=== PATIENT | female | born 1960 | race Caucasian/White ===

== ENCOUNTER 2019-04-27 23:42 | Inpatient (IN) | payer SELFPAY ==
[2019-04-27 23:44] VITALS: BP 125/88; PULSE 81; RESP 17; TEMP 36.9; O2SAT 98; BMI 58.5
[2019-04-28] VITALS (9 sets, daily range): BP systolic 104–132; BP diastolic 47–83; PULSE 66–76; RESP 16–19; TEMP 36.4–37.1; O2SAT 94–98; BMI 57.9; BMI 58.0
--- NOTE | 2019-04-28 00:19 | RAD_ITS ---
STUDY: X-RAY CHEST REASON FOR EXAM: Female, 58 years old. Chest pain TECHNIQUE: 1 view COMPARISON: None. FINDINGS: The lungs are clear and expanded. There is no demonstrated pleural abnormality. Normal size heart. Normal mediastinum and sterling. Normal visualized pulmonary arteries. Normal visualized aortic arch and descending thoracic aorta. Normal visualized thoracic spine. Normal visualized ribs, clavicles, and shoulders. There is no demonstrated abnormality of the visualized soft tissue structures of the upper abdomen. RAD/Chest 1 View (Portable) IMPRESSION: Normal x-ray examination of the chest. No acute findings in the lungs Electronically Signed: Vinicio De Leon MD at 0:49 EDT Tel , Service support ,
--- NOTE | 2019-04-28 00:20 | ED.DCSUM_ITS ---
History of Present Illness Chief Complaint: Fall Informant: Patient, Significant Other Onset: Weeks - several Context: Gradual Onset Timing: Continuous Quality: weak Location: BLE Current Severity: Severe Maximum Severity: Severe Worsened by: nothing Relieved by: nothing Associated Symptoms: low back pain gradually worsening Narrative: Chronic low back discomfort that has been worse, she has been getting weaker and leg, was admitted to [facility] last week and they gave her steroids which helped a lot with her pain, she also has fibromyalgia and has pain all over, I did help with that pain as well. She is currently done with steroids but since she has been on them, for the past week, her weakness has been worse, she has been urinating more frequently with some urinary incontinence but no saddle anesthesia, numbness in the legs, or incontinent of bowel. She has had some nausea off and on but states that is common when her fibromyalgia pain flares up. She saw her PCP this morning and had some with difficulty walking in the office she was advised to go to the ER to seek ECF admission, but she was hesitant to do this until she slid out of her recliner today and was unable to get up due to weakness, so she has changed her mind and wants to be admitted. She has a who works throughout the day and is unable to care for her throughout the day because of that. She states that when she had prior epidural injections in her back, they have temporarily helped; she has never had an MRI. - Past Medical History (1) Fibromyalgia Status: Chronic (2) Hypothyroidism Status: Chronic (3) Chronic low back pain without sciatica Status: Chronic (4) Bipolar 1 disorder Status: Chronic Past Medical History - Allergies and Home Meds Allergies/Adverse Reactions: Allergies Iodinated Contrast- Oral and IV Dye [DYEE] Allergy (Verified 04/27/19 23:49) Nausea/Vom/Diarrhea prochlorperazine [From Compazine] Allergy (Verified 04/27/19 23:49) Nausea/Vom/Diarrhea sulfamethoxazole [From Bactrim] Allergy (Verified 04/27/19 23:49) Rash trimethoprim [From Bactrim] Allergy (Verified 04/27/19 23:49) Rash Primary Care Physician: Care Physician,No Primary [Primary Care Provider] - Lives: Spouse/ Significant Other Smoking Status: Never smoker Drugs: None Review of Systems General: Denies: Chills, Fever, Sweats Eyes: Denies: Visual changes - bilaterally, Diplopia ENT: Denies: Rhinorrhea, Sore throat Cardiovascular: Denies: Chest pain, Palpitations Respiratory: Denies: Dyspnea, Cough, Dyspnea on exertion Gastrointestinal: Reports: Nausea. Denies: Abdominal pain, Vomiting, Diarrhea, Melena, Hematochezia Genitourinary: Reports: Frequency. Denies: Dysuria, Hematuria Musculoskeletal: Reports: Back pain, Extremity Pain - BLE, RUE, chronic. Denies: Neck pain, Swelling Skin: Denies: Rash, Wounds Neurological: Denies: Headache, Weakness, Parasthesia, Numbness Psych: Reports: Depression. Denies: Suicidal thoughts, Suicidal ideations Endocrine: Denies: Heat intolerance, Cold intolerance Physical Exam Vital Signs/Narrative: Vital Signs Temp Pulse Resp BP Pulse Ox 04/27/19 23:44 98.4 F 81 17 125/88 H 98 Inital Vital Signs reviewed: Yes General: Well nourished, Well developed, Obese, No Acute Distress Head: Normocephalic, Atraumatic Eyes: Perrl, EOMI ENT: Moist mucous membranes, No rhinorrhea Neck: Supple, Nontender Cardiovascular: Regular rate, Regular rhythm, No murmurs Respiratory: No distress, CTA bilaterally, Chest nontender Abdomen: Soft, Nontender, Nondistended, Normal bowel sounds Back: Nontender, Normal Inspection Extremities: No edema, Tenderness - diffuse x all 4 ext; no cyanosis. no skin lesions. FROM throughout all 4 ext's.. Negative for: Calf Tenderness Skin: Normal color, No rash, No Trauma Neurological: Alert, Oriented x3, Cranial nerves II-XII grossly intact, Normal Sensation, Normal DTR. Negative for: Normal Strength - weak in BLE, but able to move everything Psychological: Normal affect, Normal Mood Diagnostic/Tx/Re-eval Impressions Chest X-Ray 04/28/19 00:19 IMPRESSION: Normal x-ray examination of the chest. No acute findings in the lungs Electronically Signed: Vinicio De Leon MD at 0:49 EDT Tel , Service support , 04/28/19 00:19 Chest 1 View (Portable) [RAD] Stat Laboratory Results 04/28/19 04/28/19 04/28/19 01:40 01:40 02:05 WBC 8.7 RBC 4.03 L Hgb 12.8 Hct 38.1 MCV 94.5 MCH 31.8 MCHC 33.6 RDW Std Deviation 44.3 H RDW Coeff of Lan 12.8 Plt Count 267 MPV 10.1 Immature Gran % (Auto) 0.300 Neut % (Auto) 48.1 Lymph % (Auto) 39.4 [place] % (Auto) 9.0 Eos % (Auto) 2.5 Baso % (Auto) 0.7 Absolute Neuts (auto) 4.2 Absolute Lymphs (auto) 3.41 Absolute Nucleated RBC 0.00 Nucleated RBC % 0 Sodium 140 Potassium 4.1 Chloride 106 Carbon Dioxide 31.0 Anion Gap 3 L BUN 22 H Creatinine 0.95 Estim Creat Clear Calc 60.43 Est GFR (MDRD) Af Amer 77 Est GFR (MDRD) Non-Af 64 BUN/Creatinine Ratio 23.1 H Glucose 100 Calcium 8.8 Urine Color Yellow Urine Clarity Sl. Cloudy Urine pH 6.0 Ur Specific [place] 1.020 Urine Protein 15 H Urine Glucose (UA) Normal Urine Ketones Negative Urine Occult Blood 10 H Urine Nitrite Negative Urine Bilirubin Negative Urine Urobilinogen Normal Ur Leukocyte Esterase 500 H Urine RBC 0-5 SEEN Urine WBC 5-10 SEEN Ur Squamous Epith Cells 5-10 SEEN Urine Bacteria 2+ Urine Mucus 1+ - Medical Decision Making Labs show no acute abnormality, chest x-ray shows no pneumonia, urinalysis shows likely infection. Sent for culture, IV Rocephin given, she is not septic. She feels she cannot care for herself at home and her is unable to as well, her obesity is a factor there. Plan is for admission, evaluation by therapist, it is unknown whether she needs assisted living, versus longterm, versus home health. She did not injure herself from her falls. ED Disposition - Plan for ED Patient: Disposition: Acute Care Hospital [facility] Diagnosis: Declining functional status, Weakness of both lower extremities, UTI (urinary tract infection) Referrals: Care Physician,No Primary [Primary Care Provider] -
[2019-04-28] MEDS: Ondansetron 4 MG/2 ML Vial IV (01:33)
[2019-04-28] MEDS: Morphine 4 MG/ML Syringe IV (01:33)
[2019-04-28 01:53] LABS: Absolute Lymphocyte Count 3.41 X10^3/uL (0.83-4.51); Absolute Neutrophil Count 4.2 X10^3/uL (2.0-7.7); Basophil# 0.06 X10^3/uL; Basophil% 0.7 % (0-1); Eosinophil# 0.22 X10^3/uL; Eosinophils% 2.5 % (0-5); Hematocrit 38.1 % (37-47); Hemoglobin 12.8 g/dL (12.0-15.0); Lymphocyte # 3.41 X10^3/ul (4.0); Lymphocyte % 39.4 % (19-41); Mean Corp Hgb Conc 33.6 g/dL (32-36); Mean Corpuscular Hgb 31.8 pg (27.0-32.0); Mean Corpuscular Volume 94.5 fL (81-99); Mean Platelet Vol. 10.1 fl (6.2-12.0); Monocyte# 0.78 X10^3/uL; NRBC Flagged by Analyzer 0 % (0-5); Neutrophil # 4.16 X10^3/uL (2.7-7.7); Neutrophil % 48.1 % (47-70); Platelet Count 267 K/mm3 (150-450); RBC Distribution Width CV 12.8 % (11.6-14.6); RBC Distribution Width SD 44.3 fl (35.1-43.9); Red Blood Count 4.03 M/mm3 (4.2-5.4); White Blood Count 8.7 K/mm3 (4.4-11.0)
[2019-04-28 01:59] LABS: Anion Gap 3 (5-15); BUN 22 mg/dL (7-18); BUN/Creat Ratio 23.1 RATIO (10-20); Calcium,Total 8.8 mg/dL (8.5-10.1); Chloride 106 mmol/L (98-107); Creatinine, Serum 0.95 mg/dL (0.55-1.02); EST Glomerular Filtration Rate 64 mL/min (>60); Est Glom Filt Rate - Afr Amer 77 mL/min (>60); Estimated Creatinine Clearance 60.43 ml/min; Glucose 100 mg/dL (74-106); Potassium 4.1 mmol/L (3.5-5.1); Sodium Level 140 mmol/L (136-145)
[2019-04-28 02:13] LABS: Color, Urine Yellow (Yellow); Glucose, Dipstick Normal (Normal); Ketone-Dipstick Negative (Negative); Leukocyte Esterase-Dipstick 500 /ul (Negative); Nitrite-Dipstick Negative (Negative); Occult Blood-Urine 10 /ul (Negative); Protein-Dipstick 15 mg/dl (Negative); Urine Bilirubin Dipstick Negative (Negative); Urine Clarity Sl. Cloudy (Clear); Urine Urobilinogen Normal (Normal)
[2019-04-28 02:17] LABS: Bacteria 2+ /hpf (None Seen); Mucous, Urine 1+ /hpf (<or=2+); Squamous Epithelial Cells - UA 5-10 SEEN /hpf (5-10)
[2019-04-28 02:18] LABS: Red Blood Cells-Urine 0-5 SEEN /hpf (0-5); White Blood Cells 5-10 SEEN /hpf (0-5)
--- NOTE | 2019-04-28 02:33 | PCM.HP.STD ---
Problem List (1) Weakness of both lower extremities Status: Acute (2) UTI (urinary tract infection) Status: Acute History of Present Illness Date of Admission: 04/28/19 Chief Complaint: bilateral leg weakness The patient is a 58 year old F with a significant history of fibromyalgia; bipolar disorder; super morbid obesity who presented to the emergency department with 1 week history of bilateral leg weakness. Associated with her symptoms is lower back pain that radiates to her right leg. At rest her pain is 6 out of 10. And with movement her pain is 9 out of 10. She describe her pain as dull aching and cramps. She reports that the pain at the right leg is on her pedroza. Patient was recently admitted at [facility] where she received steroids and pain medication that improved her pain. After the course of steroids ran out her pain came back. Patient follows up with [facility]. Reportedly she had received epidural shots in her back before. Patient reports weakness to the point that she could not get in/out of a vehicle. Patient is unable to take care of herself because she is unable to walk. She lives at home with her who works and is not at home all the time. Patient reported that she has been prescribed Courtenay from the [place] [facility] but because of excruciating pain she took an extra dose of a prescribed Courtenay. She reports urinary frequency for about 1 month duration. Also she reported feeling of incomplete bladder emptying. She reports recent constipation. Previously her bowels used to move 2-3 times a day. Her last bowel movement was on the day of presentation where her bowels moved only one time. Past Medical History Past Medical History (Chronic Problems): Chronic Problems Fibromyalgia (Chronic) Hypothyroidism (Chronic) Chronic low back pain without sciatica (Chronic) Bipolar 1 disorder (Chronic) Allergies Iodinated Contrast- Oral and IV Dye [DYEE] Allergy (Verified 04/27/19 23:49) Nausea/Vom/Diarrhea prochlorperazine [From Compazine] Allergy (Verified 04/27/19 23:49) Nausea/Vom/Diarrhea sulfamethoxazole [From Bactrim] Allergy (Verified 04/27/19 23:49) Rash trimethoprim [From Bactrim] Allergy (Verified 04/27/19 23:49) Rash Home Medications: Ambulatory Orders Medication Instructions Recorded Celecoxib 200 mg PO DAILY 04/27/19 Fluoxetine HCl [Prozac] 20 mg PO BID 04/27/19 Hydrocodone/Acetaminophen [Courtenay 5 - 325 mg PO TID 04/27/19 5-325 Tablet] Pregabalin [Lyrica] 75 mg PO BID 04/27/19 Progesterone, Micronized 100 mg PO DAILY 04/27/19 [Progesterone] Quetiapine Fumarate [Seroquel] 300 mg PO DAILY 04/27/19 Thyroid,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 Thyroid] 60 mg PO DAILY 04/27/19 cycloBENZAPRine HCl 10 mg PO TID 04/27/19 [Cyclobenzaprine HCl] Surgical History: appendectomy, cholecystectomy, hysterectomy, - - Bladder surgery for growth removal Lives: Spouse/ Significant Other Smoking Status: Never smoker Alcohol: None Drugs: None - *Family History Maternal History Items: Diabetes, Stroke Paternal History Items: COPD, Diabetes, Pulmonary Disease - Asthma Review of Systems Constitutional: Denies: Chills, Fever, Weight Change HEENT: Denies: Head Aches, Sinus Congestion, Sinus Drainage Cardiovascular: Denies: Chest Pain, Palpitations Respiratory: Denies: Cough, Shortness of breath at rest, Sputum production Gastrointestinal: Denies: Abdominal Pain, Nausea, Vomiting Genitourinary: Reports: Dysuria, Frequency Musculoskeletal: Reports: Back Pain, Leg Pain, Muscle pain. Denies: Joint Tenderness Skin: Reports: Skin Changes - Erythema in groin. Denies: Wounds Neurological: Denies: Numbness, Tingling, Focal weakness Psychiatric: Reports: Depression. Denies: Anxiety, Homicidal Ideations, Suicidal Ideations Hematologic/ Lymphatic: Denies: Easy Bruising, Easy Bleeding VTE Information - Inpt Only VTE Present on Admission: No VTE Mechan Device Prophylaxis: None VTE Pharm Prophylaxis ordered?: Yes Patient Problems: Active and Suspected Problems Declining functional status (Acute) Weakness of both lower extremities (Acute) UTI (urinary tract infection) (Acute) - Physical Exam General: Alert, Oriented x3, Cooperative, - - Morbidly obese. HEENT: Atraumatic, PERRLA, EOMI, Normocephalic Neck: Supple, No JVD, Negative Carotid Bruits Lungs: Clear to auscultation, Normal air movement Cardiovascular: Regular rate, No murmurs Abdomen: Bowel Sounds Present, Soft, Non Tender Extremities: No edema, Capillary Refill Less than 3 Seconds, Tenderness - Bilateral leg. With straight leg test patient did not complain of back pain however she complained of bilateral leg pain. Skin: - - Erythema in inguinal folds Musculoskeletal: - - Diffuse spinal and paraspinal tenderness of her back Fernie contribute to fibromyalgia Neurological: Cranial nerves II-XII grossly intact Psych/Mental Status: Normal Affect, Appropriate Vital Signs Temp Pulse Resp BP Pulse Ox 98.4 F 76 16 104/64 97 04/27/19 23:44 04/28/19 02:06 04/28/19 02:06 04/28/19 02:06 04/28/19 02:06 Oxygen Delivery Method Room Air Weight: 164.4 kg Body Mass Index (BMI) 58.5 Laboratory Tests Past 24 Hrs 04/28/19 04/28/19 04/28/19 01:40 01:40 02:05 WBC 8.7 RBC 4.03 L Hgb 12.8 Hct 38.1 MCV 94.5 MCH 31.8 MCHC 33.6 RDW Std Deviation 44.3 H RDW Coeff of Lan 12.8 Plt Count 267 MPV 10.1 Immature Gran % (Auto) 0.300 Neut % (Auto) 48.1 Lymph % (Auto) 39.4 [place] % (Auto) 9.0 Eos % (Auto) 2.5 Baso % (Auto) 0.7 Absolute Neuts (auto) 4.2 Absolute Lymphs (auto) 3.41 Absolute Nucleated RBC 0.00 Nucleated RBC % 0 Sodium 140 Potassium 4.1 Chloride 106 Carbon Dioxide 31.0 Anion Gap 3 L BUN 22 H Creatinine 0.95 Estim Creat Clear Calc 60.43 Est GFR (MDRD) Af Amer 77 Est GFR (MDRD) Non-Af 64 BUN/Creatinine Ratio 23.1 H Glucose 100 Calcium 8.8 Urine Color Yellow Urine Clarity Sl. Cloudy Urine pH 6.0 Ur Specific [place] 1.020 Urine Protein 15 H Urine Glucose (UA) Normal Urine Ketones Negative Urine Occult Blood 10 H Urine Nitrite Negative Urine Bilirubin Negative Urine Urobilinogen Normal Ur Leukocyte Esterase 500 H Urine RBC 0-5 SEEN Urine WBC 5-10 SEEN Ur Squamous Epith Cells 5-10 SEEN Urine Bacteria 2+ Urine Mucus 1+ Assessment/Plan All Active Problems Declining functional status (Acute) Weakness of both lower extremities (Acute) UTI (urinary tract infection) (Acute) The patient is a 58 year old F with a significant history of fibromyalgia; bipolar disorder; super morbid obesity who presented to the emergency department with 1 week history of bilateral leg weakness and with urinary symptoms and was found to have abnormal urinalysis. Bilateral leg weakness. PT and OT to work the patient and make recommendation. Of note patient reports that she has never had an MRI even though she has had epidural shot; has been hospitalized at all those hospital and is following up with [facility]. Will request medical records from the centers. PT noted with patient and make recommendation. Case management consult for discharge planning. Low back pain Continue home Celebrex; Courtenay; pregabalin. Add PRN Tylenol. Of note careful use of Tylenol while on Courtenay. Acute cystitis Received ceftriaxone 1 g at the emergency department. Because of a high body index will dose ceftriaxone twice daily. Intertrigo Nystatin powder ordered Constipation Does not feel like cauda equina syndrome. She reported to be having constipation for some time and try to get her bowels to come to normal. Will start her on MiraLAX. Hold for loose stools. Postmenopausal symptoms Progesterone continued Bipolar/depression Seroquel and Prozac continued Hypothyroidism Thyroid medicine continued. Because of her weakness will check TSH. Fibromyalgia Celebrex; Flexeril; Lyrica continued DVT prophylaxis Because of a high body index will dose Lovenox 40 mg twice daily Code Visit Inpatient E&M: 40234 Init Hosp L3
[2019-04-28] MEDS: Ceftriaxone 1 GM/50 ML BAG IV (03:33)
[2019-04-28 04:45] LABS: Thyroid Stim Hormone (TSH) 3.13 uIU/mL (0.358-3.74)
[2019-04-28] MEDS: HYDROcodone Bitartrate/Apap 5/325 Tablet PO ×3 (05:00→22:10)
[2019-04-28] MEDS: cycloBENZAPRine HCl 10 MG Tablet PO (05:01)
[2019-04-28 05:06] LABS: Bedside Glucose 96 mg/dL (70-110)
[2019-04-28] MEDS: Thyroid 60 MG Tablet PO (08:53)
[2019-04-28] MEDS: FLUoxetine 20 MG Capsule PO ×2 (08:54→22:06)
[2019-04-28] MEDS: Celecoxib 200 MG Capsule PO (08:54)
[2019-04-28] MEDS: Polyethylene Glycol 3350 17 GM PACKET PO (08:54)
[2019-04-28] MEDS: QUEtiapine 100 MG Tablet 300 MG PO (08:54)
[2019-04-28] MEDS: Enoxaparin 40 MG/0.4 ML Syringe SC (08:55)
[2019-04-28] MEDS: Pregabalin 75 MG Capsule PO ×2 (09:00→22:10)
--- NOTE | 2019-04-28 09:57 | PCA ---
have received patient records from [facility]
--- NOTE | 2019-04-28 11:22 | NURSING ---
This nurse aware of Vital Signs that were obtained this morning by Jazz SYED.
--- NOTE | 2019-04-28 12:31 | NURSING ---
this nurse went into see pt. Pt informed this nurse that she has not had a bowel movement since and the last time she was here she went home and could not have a bowel movement she had to disimpact herself. This nurse informed her that she was given Miralax this morning but the doctor would be notified. Dr. Rock is here on the floor and is aware of the above. Order obtained.
--- NOTE | 2019-04-28 12:45 | CASEMGMT ---
Social Work Consult: SNF Placement Informant: configuration manager Met with patient in room. Patient reporting to have [employer] as insurance. This social services specialist stating to not be sure how this will work with usp placement. Patient confirming to want and need usp placement. Patient requesting [facility] as patient first and second options. This social services specialist communicating that social work will need to follow up with patient on Tuesday to explore further options. Patient aware that there is a chance patient will need to private pay for SNF due to patient no having any formal insurance. Patient aware and stating to maybe be able to get some assistance from the hindu. Support provided. Social Work to continue to follow. Kiki SINGH, TUCKER
[2019-04-28 14:17] LABS: Hemoglobin A1c 5.5 % (4.2-6.3)
[2019-04-28] MEDS: cycloBENZAPRine HCl 5 MG TABLET PO (15:19)
[2019-04-28] MEDS: Lactulose 20 GM/30 ML UDC PO (15:20)
[2019-04-28 17:01] LABS: Bedside Glucose 85 mg/dL (70-110)
--- NOTE | 2019-04-28 17:39 | PCM.HOSP.N ---
Hospitalist Note She was seen and examined today, she was admitted earlier this morning for generalized weakness that has been progressive at home, her was unable to care for her any longer and requested retirement facility placement. Patient states that when she tries to stand her legs are weak and give out. Patient also complains of intermittent numbness in her legs. Patient currently sees pain management in [place]. I have reviewed the patient's medications from her [facility] report, it appears that she was only prescribed a small amount of Flexeril for use, I have elected to stop this medication at this time. Patient states she is never had an MRI of her lower back, I will order a noncontrasted MRI of the lumbar spine.
--- NOTE | 2019-04-28 19:46 | DIALYSIS ---
Addendum entered by Chemo Lewis 05/01/19 15:11: This note entered on incorrect patient. Magalys Yu original documenter verified that documentation was on incorrect patient. please disregard information included within this note for this particular patient. Original Note: Arrived to do IUF treatment on patient. She initially refused stating I don't ever have water on me! O2 sat was checked and found to be 88%. Lungs sounded wheezy with some crackles . Patient has been coughing frequently and this is her main concern and focus. When I explained that by taking some extra fluid off this may help her cough she was then agreeable to the treatment. Patient was on treatment for one hour when she awoke suddenly yelling of cramping in her calf. Fluid removal and treatment was stopped and cramping subsided. Total of 1600 ml of fluid was removed w this IUF session, and 2 liters was removed with her dialysis yesterday. We will dialyze her again on Tuesday for her full treatment. Post IUF VS were 132/53, 75, 17, 97.8 and 94% on room air.
[2019-04-29 03:40] VITALS: BP 122/65; PULSE 72; RESP 18; TEMP 36.4; O2SAT 93
[2019-04-29] MEDS: Acetaminophen 325 MG Tablet 650 MG PO (04:04)
[2019-04-29] MEDS: HYDROcodone Bitartrate/Apap 5/325 Tablet PO ×3 (06:08→21:39)
[2019-04-29 09:09] VITALS: BP 112/61; PULSE 73; RESP 16; TEMP 36.6; O2SAT 96
[2019-04-29] MEDS: Lactulose 20 GM/30 ML UDC PO ×2 (09:11→21:37)
[2019-04-29] MEDS: Enoxaparin 40 MG/0.4 ML Syringe SC (09:12)
[2019-04-29] MEDS: Polyethylene Glycol 3350 17 GM PACKET PO (09:12)
[2019-04-29] MEDS: Thyroid 60 MG Tablet PO (09:13)
[2019-04-29] MEDS: Pantoprazole Sodium 40 MG Tablet PO (09:13)
[2019-04-29] MEDS: Celecoxib 200 MG Capsule PO (09:14)
[2019-04-29] MEDS: PROGESTERONE, MICRONIZED 100 MG CAPSULE PO (09:14)
[2019-04-29] MEDS: FLUoxetine 20 MG Capsule PO ×2 (09:15→21:37)
[2019-04-29] MEDS: Nystatin Ointment 1 APPLIC TOPICAL (09:16)
[2019-04-29] MEDS: Pregabalin 75 MG Capsule PO ×2 (09:26→21:39)
--- NOTE | 2019-04-29 11:10 | NURSING ---
dialysis nurse called about wrong patient documentation
[2019-04-29 15:25] VITALS: BP 143/73; PULSE 68; RESP 18; TEMP 37; O2SAT 95
--- NOTE | 2019-04-29 16:16 | PCM.PROGNOTE ---
Patient Problems: Active and Suspected Problems Declining functional status (Acute) Weakness of both lower extremities (Acute) UTI (urinary tract infection) (Acute) Subjective: Patient was seen and examined today, her was in the room. Nursing states that the patient is more alert today, yesterday I stopped her Flexeril. Patient needed moderate assistance with physical therapy for transfers, she needed maximum assistance for walking. Patient has no complaints today of leg pain or numbness. - Physical Exam General: Alert, Oriented x3, Cooperative, No apparent distress, Well developed HEENT: Atraumatic, PERRLA, EOMI, Normocephalic Oral: Moist Mucosa Neck: Supple, Trachea Midline, Thyroid Normal Size and Texture Lungs: Clear to auscultation, Normal air movement, No rhonchi, No wheeze, No rales Cardiovascular: Regular rate, Regular Rhythm, Normal S1, Normal S2, No murmurs, No Ectopic Activity, PMI Normal, No rub noted Abdomen: Bowel Sounds Present, Soft, Non Tender, Non-Distended, Obese, No hernias noted Extremities: No clubbing, No cyanosis, Capillary Refill Less than 3 Seconds Skin: No rashes, No breakdown Neurological: Cranial nerves II-XII grossly intact, Neuro grossly intact, Sensory exam intact to light touch and pain Psych/Mental Status: Normal Affect, Appropriate, Alert and oriented to time, place, person, mood and affect Vital Signs Temp Pulse Resp BP Pulse Ox 98.6 F 68 18 143/73 H 95 04/29/19 15:25 04/29/19 15:25 04/29/19 15:25 04/29/19 15:25 04/29/19 15:25 Oxygen Delivery Method Room Air Weight: 162.9 kg Body Mass Index (BMI) 57.9 Intake and Output for Last 24 Hours 04/27/19 04/28/19 04/29/19 23:59 23:59 23:59 Intake Total 690 / 930 680 / 680 Output Total 3100 / 4300 1800 / 1800 Balance -2410 / -3370 -1120 / -1120 Microbiology Past 72 Hours 04/28/19 02:05 Urine Culture - Final Urine, Clean Catch Mixed Gram Pos & Gram Neg Org POC Glucose 04/28/19 16:56 POC Glucose 85 Medical Necessity - Tobacco Use Smoking Status: Never smoker Tobacco Use: Non-smoker Assessment/Plan All Active Problems Declining functional status (Acute) Weakness of both lower extremities (Acute) UTI (urinary tract infection) (Acute) #1 generalized debility-probably secondary to deconditioning and morbid obesity on a backdrop of osteoarthritis-PT and OT will continue, I have ordered an MRI of her lumbar spine to rule out any spinal pathology that would cause her to have impairment in ambulation and activities of daily living. Patient will need placement in a alf facility for at least short-term rehab #2 bipolar 1 disorder #3 chronic low back pain-probably secondary to osteoarthritis of the lumbar spine #4 fibromyalgia #5 hypothyroidism No evidence of urinary tract infection at this time, patient's urine culture grew out mixed organisms indicative of contamination. Patient has no signs or symptoms of urinary tract infection. Code Visit Inpatient E&M: 35601 Subs Hosp L2
[2019-04-29 19:55] VITALS: BP 132/63; PULSE 78; RESP 18; TEMP 36.6; O2SAT 98
[2019-04-29] MEDS: QUEtiapine 100 MG Tablet 300 MG PO (21:36)
[2019-04-30 02:55] VITALS: BP 117/60; PULSE 72; RESP 17; TEMP 36.7; O2SAT 94
[2019-04-30] MEDS: HYDROcodone Bitartrate/Apap 5/325 Tablet PO ×3 (06:08→21:28)
[2019-04-30] MEDS: Nystatin Powder 15gm Bottle 1 APPLIC TOPICAL ×3 (06:10→21:30)
[2019-04-30 08:55] VITALS: BP 122/75; PULSE 72; RESP 16; TEMP 36.3; O2SAT 97
[2019-04-30] MEDS: Polyethylene Glycol 3350 17 GM PACKET PO (09:11)
[2019-04-30] MEDS: Lactulose 20 GM/30 ML UDC PO ×2 (09:11→21:28)
[2019-04-30] MEDS: Celecoxib 200 MG Capsule PO (09:12)
[2019-04-30] MEDS: Thyroid 60 MG Tablet PO (09:13)
[2019-04-30] MEDS: Enoxaparin 40 MG/0.4 ML Syringe SC (09:13)
[2019-04-30] MEDS: Pantoprazole Sodium 40 MG Tablet PO (09:14)
--- NOTE | 2019-04-30 09:19 | MRI_ITS ---
HISTORY: bilat leg weakness rt Tgt; lt x 1 week, unable to bear weight EXAM/TECHNIQUE: MR Spine Lumbar W/O Contrast: 1.5 [place]. Multiplanar, multisequence. COMPARISON: None. FINDINGS: # of images incl. paperwork: 150 Sagittal alignment anatomic. Mild left scoliosis centered at L2. No fracture or acute osseous abnormality. Disc space loss particularly at L1-2, L2-3, and L4-5. Degenerative endplate irregularity and signal changes most prominent at L1-2 and L4-5. Conus terminates at the level of the L1 inferior endplate with normal contour and signal. Thecal sac terminates at the level of S2-3. Paraspinal soft tissues unremarkable. At L1-2, small diffuse disc bulge and mild bilateral facet degeneration causes only mild narrowing of the spinal canal and foramina. At L2-3, small diffuse disc bulge and moderate bilateral facet degeneration with small bilateral facet effusions cause only mild narrowing of the spinal canal and foramina. At L3-4, moderate bilateral facet degeneration with small bilateral facet joint effusions causes no significant narrowing. At L4-5, diffuse disc bulge with left lateral protrusion moderately narrows the left subarticular zone with mild posterior displacement of the traversing left L5 nerve root. This combines with left greater than right facet degeneration with small effusions cause mild right and moderate left foraminal narrowing. Disc abuts but does not displace the exiting left L4 nerve root in the left foramen. At L5-S1, mild bilateral facet degeneration causes no significant narrowing. MRI/Spine Lumbar (Routine) IMPRESSION: Degenerative changes most prominent at L4-5. If there is left-sided L5, or to a lesser extent L4, radiculopathy this level might be the cause. No other evidence of nerve root impingement. Multilevel disc and facet degeneration which might cause discogenic or facet related pain. at 1932 Reported and signed by: Kit Gomes MD Electronically Signed: Kit Gomes, at 19:31 EDT Tel , Service support ,
[2019-04-30] MEDS: PROGESTERONE, MICRONIZED 100 MG CAPSULE PO (09:58)
[2019-04-30] MEDS: FLUoxetine 20 MG Capsule PO ×2 (10:04→21:29)
[2019-04-30] MEDS: Pregabalin 75 MG Capsule PO ×2 (10:04→21:29)
--- NOTE | 2019-04-30 12:42 | CASEMGMT ---
Addendum entered by Ronel Tamayo 04/30/19 14:47: SW received message from Desirae at [facility] stating they are unable to accept pt due to pt's weight. SW has attempted multiple times to call [facility] as this is pt's next choice but has been unable to reach anyone at SNF. SW to continue to try to call [facility]. Original Note: Social Work Note SW reviewed notes and pt would like SNF placement at [facility]. SUDARSHAN placed a call to [facility] and spoke with Desirae in admissions. SUDARSHAN asked Desirae how [facility] work with pt going to SNF. Desirae states he is not sure and asked about the mu-ism that it is funded through and the contact information for mu-ism. SUDARSHAN met with pt, introduced self and role at [facility]. Pt is alert and orientated x4. Pt states she doesn't know the mu-ism that the [facility] is funded through and informed this worker to call her Shaquille. Pt informed this worker that Shaquille is currently at work however and likely won't be able to answer his phone. SW informed pt that this worker can call Shaquille and leave him a message and provide direct contact number. Pt confirms Shaquille's number and gave this worker permission to call her . SW placed a call to pt's Shaquille and left message and provided direct number and asked to give this worker a call back with the needed information regarding what mu-ism the insurance is funded through. SW will await call back. SW did fax referral to Desirae at [facility] to review. Plan: SNF pending acceptance Ronel Tamayo PIT CREW SUPPORT WORKER, MAKE READY WORKER
[2019-04-30 14:55] VITALS: BP 134/75; PULSE 71; RESP 16; TEMP 36.7; O2SAT 97
--- NOTE | 2019-04-30 15:48 | CASEMGMT ---
Addendum entered by Ronel Tamayo 04/30/19 16:17: Landy provided cell phone [phone] Addendum entered by Ronel Tamayo 04/30/19 16:14: SUDARSHAN received call from Landy in admissions at [facility] stating their phones have been down all day. SUDARSHAN updated Landy on referral and that this worker is trying to figure out organization/sikh that [facility] is through and that this worker has a call out to pt's regarding this. SUDARSHAN updated Landy that pt is bariatric. Landy states that she will review referral and give this worker a call back. Original Note: Social Work Note [facility]. [facility] and asked for admissions to call this worker. Plan: SNF pending acceptance Ronel Tamayo METAL TECHNICIAN, OPERATIONS TRAINER
--- NOTE | 2019-04-30 19:30 | PCM.PROGNOTE ---
Patient Problems: Active and Suspected Problems Declining functional status (Acute) Weakness of both lower extremities (Acute) UTI (urinary tract infection) (Acute) Subjective: Patient was seen and examined today, she had an MRI of her lumbar spine today and we are awaiting the results. business services specialist sales is arranging for the patient to be placed in a skilled care facility. Patient has no complaints of increased weakness in her legs or numbness in her legs. - Physical Exam General: Alert, Oriented x3, Cooperative, No apparent distress, Well developed HEENT: Atraumatic, PERRLA, EOMI, Normocephalic Oral: Moist Mucosa Neck: Supple, Trachea Midline, Thyroid Normal Size and Texture Lungs: Clear to auscultation, Normal air movement, No rhonchi, No wheeze, No rales Cardiovascular: Regular rate, Regular Rhythm, Normal S1, Normal S2, No murmurs, PMI Normal, No rub noted, No Gallop Abdomen: Bowel Sounds Present, Soft, Non Tender, Non-Distended, Obese, No hernias noted Extremities: No clubbing, No cyanosis, Capillary Refill Less than 3 Seconds Skin: No rashes, No breakdown Musculoskeletal: No Tenderness to Palpation of Joints or Extremities Neurological: Cranial nerves II-XII grossly intact, Neuro grossly intact, Sensory exam intact to light touch and pain Psych/Mental Status: Normal Affect, Appropriate, Alert and oriented to time, place, person, mood and affect Vital Signs Temp Pulse Resp BP Pulse Ox 98.1 F 71 16 134/75 H 97 04/30/19 14:55 04/30/19 14:55 04/30/19 14:55 04/30/19 14:55 04/30/19 14:55 Oxygen Delivery Method Room Air Weight: 162.9 kg Body Mass Index (BMI) 57.9 Intake and Output for Last 24 Hours 04/28/19 04/29/19 04/30/19 23:59 23:59 23:59 Intake Total 690 / 930 680 / 980 540 / 540 Output Total 3100 / 4300 1800 / 2150 1150 / 1150 Balance -2410 / -3370 -1120 / -1170 -610 / -610 Microbiology Past 72 Hours 04/28/19 02:05 Urine Culture - Final Urine, Clean Catch Mixed Gram Pos & Gram Neg Org Medical Necessity - Tobacco Use Smoking Status: Never smoker Tobacco Use: Non-smoker Assessment/Plan All Active Problems Declining functional status (Acute) Weakness of both lower extremities (Acute) UTI (urinary tract infection) (Acute) #1 generalized debility-probably secondary to deconditioning and morbid obesity on a backdrop of osteoarthritis-PT and OT will continue, MRI results were pending at the time of this dictation #2 bipolar 1 disorder #3 chronic low back pain-probably secondary to osteoarthritis of the lumbar spine #4 fibromyalgia #5 hypothyroidism No evidence of urinary tract infection at this time, patient's urine culture grew out mixed organisms indicative of contamination. Patient has no signs or symptoms of urinary tract infection. Code Visit Inpatient E&M: 31869 Subs Hosp L2
[2019-04-30 20:00] VITALS: BP 130/79; PULSE 79; RESP 18; TEMP 37; O2SAT 95
[2019-04-30] MEDS: QUEtiapine 100 MG Tablet 300 MG PO (21:29)
[2019-04-30] MEDS: Acetaminophen 325 MG Tablet 650 MG PO (22:58)
[2019-05-01 02:05] VITALS: BP 136/76; PULSE 78; RESP 18; TEMP 37.1; O2SAT 96
[2019-05-01] MEDS: HYDROcodone Bitartrate/Apap 5/325 Tablet PO ×3 (05:29→21:28)
[2019-05-01 08:05] VITALS: BP 104/65; PULSE 75; RESP 16; TEMP 36.6; O2SAT 95
[2019-05-01] MEDS: Thyroid 60 MG Tablet PO (09:05)
[2019-05-01] MEDS: FLUoxetine 20 MG Capsule PO ×2 (09:05→21:22)
[2019-05-01] MEDS: Lactulose 20 GM/30 ML UDC PO ×2 (09:05→21:24)
[2019-05-01] MEDS: Pantoprazole Sodium 40 MG Tablet PO (09:05)
[2019-05-01] MEDS: Celecoxib 200 MG Capsule PO (09:05)
[2019-05-01] MEDS: Polyethylene Glycol 3350 17 GM PACKET PO (09:06)
[2019-05-01] MEDS: PROGESTERONE, MICRONIZED 100 MG CAPSULE PO (09:06)
[2019-05-01] MEDS: Nystatin Powder 15gm Bottle 1 APPLIC TOPICAL ×2 (09:10→21:23)
[2019-05-01] MEDS: Enoxaparin 40 MG/0.4 ML Syringe SC (09:11)
[2019-05-01] MEDS: Pregabalin 75 MG Capsule PO ×2 (09:14→21:29)
--- NOTE | 2019-05-01 10:38 | CASEMGMT ---
Addendum entered by Ronel Tamayo 05/01/19 13:42: SW completed convalescent 7000 in HENS and placed on pt's chart with green sheet and transportation form. Addendum entered by Ronel Tamayo 05/01/19 12:41: [place], physician, and Charge Nurse updated. Original Note: Social Work Note SUDARSHAN received call from pt's Shaquille. Shaquille states that he contacted [facility] and the plan that they have don't pay for SNF. Shaquille asked about calling [facility] to arrange payment plan. SUDARSHAN informed Shaquille that this worker had made referral to [facility] yesterday and they are unable to accept pt at this time. SUDARSHAN informed Shaquille that this worker had made a referral to [facility] as this was pt's next choice for SNF and informed Shaquille that this worker is [facility]. SUDARSHAN informed Shaquille that he can [facility] in regards to financial if he wishes to do so. SUDARSHAN informed Shaquille that since the [facility] doesn't have SNF coverage then it will be private pay for SNF. Shaquille states understanding, also asked if he can arrange payment plan for hospital bill. SUDARSHAN provided Shaquille with patient financial services number and encouraged him to call [facility]. SUDARSHAN placed a call to Fabienne at [facility] and updated her that pt will be private pay for pt. Fabienne states that they require month up front payment, which is $6,000 for a semi private room and then the medications and billing would be billed at a later time. Landy states that pt's is able to call her on her cell phone ([phone]) to discuss financials. Landy also states that she needs to know the width of pt's chair to determine if their door frames are big enough for pt. SUDARSHAN updated medical secretary Trinidad who will measure pt's width of her chair. SUDARSHAN updated by secretary Abdi that width of pt's chair is 27 inches. SUDARSHAN placed a call to Landy and left her a message informing her width of pt's chair. SUDARSHAN updated physician that this worker still needs an accepting facility and pt will be responsible for private pay at SNF. SUDARSHAN received call from Landy at [facility] stating they are able to accept pt and she had called pt's Shaquille and informed him of private pay costs and Landy states Shaquille will be meeting with her today around 4:45pm to discuss financials. SUDARSHAN informed Landy that if everything goes well and Shaquille is agreeable to private costs and [facility], then to call [facility] main number and inform staff and they will know what to do. SUDARSHAN informed Landy that if Shaquille is not able to pay privately and [facility] unable to take tonight to call this worker's main number and leave a message and this worker will work on discharge plans with pt and Shaquille tomorrow. Landy states understanding. SUDARSHAN provided Landy with [facility] main number. SUDARSHAN placed green sheet and transportation form on SNF folder in the event pt is able to discharge to [facility] today. Plan: [facility] and pt's has a meeting today around 4:45pm to discuss private pay at SNF. If pt's Shaquille is agreeable to pay, pt can discharge to [facility] today and Landy at [facility] will call [facility] main number to update staff. If pt's is not able to pay privately for SNF then other plans will have to be made and pt will be at [facility] until tomorrow. Ronel Tamayo THERAPEUTIC RECREATION DIRECTOR, PLANNING CONSULTANT
--- NOTE | 2019-05-01 14:00 | RAD_ITS ---
STUDY: X-RAY - PELVIS AND RIGHT HIP REASON FOR EXAM: Female, 58 years old. Pain TECHNIQUE: 3 views of the pelvis and hip. COMPARISON: None. FINDINGS: There is a non-specific bowel gas pattern. Normal visualized soft tissue structures. Normal bilateral iliac wings, sacroiliac joints and visualized sacrum. Normal bilateral superior and inferior pubic rami. Normal pubic symphysis. Normal bilateral ischial tuberosities. Normal visualized femoral head. Normal acetabulum. There is severe narrowing of the superior hip joint and moderate narrowing of the medial right hip joint. Age consistent left hip arthrosis. RAD/HIP, UNI W/ Pelvis 2-3 Views IMPRESSION: Moderate to severe right hip arthrosis likely in the superior aspect of the right hip joint. No demonstrated fracture, femoral head flattening, or subchondral change. Age consistent left hip and SI joint arthrosis Electronically Signed: Mickey Garibay MD at 14:22 EDT , Service support ,
[2019-05-01 14:05] VITALS: BP 122/74; PULSE 75; RESP 18; TEMP 36.6; O2SAT 99
--- NOTE | 2019-05-01 14:05 | CASEMGMT ---
Addendum entered by Ronel Tamayo 05/01/19 16:28: SW in to update pt. Pt states that she is feeling discouraged. SW asked pt to elaborate on her feelings. Pt states I was told that there is nothing wrong and that it is just arthritis in my spine and I am just going to be in constant pain. SW offered support to pt. SW updated pt that [facility] unable to accept pt. SW informed pt that this worker spoke with pt's Shaquille and was updated that Shaquille called [facility] and their plan doesn't cover SNF and that going to SNF will be private pay. SW informed pt that [facility] is able to accept but that pt's was going to be meeting with [facility] today to go over financials and determine if they are able to pay privately for SNF. SW informed pt that this worker or staff will update pt once [facility] calls after the meeting. Pt states understanding, denied additional needs or concerns at this time. Original Note: Social Work Note SW attempted to update pt and pt is currently off floor. Ronel Tamayo EARTH SCIENCE FACULTY MEMBER, PLASTERER JOURNEYMAN
--- NOTE | 2019-05-01 18:53 | PCM.PROGNOTE ---
Patient Problems: Active and Suspected Problems Declining functional status (Acute) Weakness of both lower extremities (Acute) UTI (urinary tract infection) (Acute) Subjective: Patient was seen and examined today, she continues to complain of pain in her right hip, I ordered a right hip x-ray today which showed moderate to severe arthritis of the right hip. I talked to her briefly about this, I told her because of her weight, it was unlikely anybody was going to operate on her hip to do a hip replacement. I told her she can concentrate on losing weight and see orthopedic surgery for an evaluation and she understood this. Patient's went to [facility] to see if he could work out in agreement with the [facility] regarding her admission there, at the time of this dictation, I have not heard back from the , patient will continue to receive PT and OT here. - Physical Exam General: Alert, Oriented x3, Cooperative, No apparent distress, Well developed HEENT: Atraumatic, PERRLA, EOMI, Normocephalic Oral: Moist Mucosa Neck: Supple, Trachea Midline, Thyroid Normal Size and Texture Lungs: Clear to auscultation, Normal air movement, No rhonchi, No wheeze, No rales Cardiovascular: Regular rate, Regular Rhythm, Normal S1, Normal S2, No murmurs, PMI Normal, No rub noted Abdomen: Bowel Sounds Present, Soft, Non Tender, Non-Distended, Obese Extremities: No clubbing, No cyanosis, Capillary Refill Less than 3 Seconds Skin: No rashes, No breakdown Musculoskeletal: No Tenderness to Palpation of Joints or Extremities Neurological: Cranial nerves II-XII grossly intact, Neuro grossly intact, Sensory exam intact to light touch and pain Psych/Mental Status: Normal Affect, Appropriate, Alert and oriented to time, place, person, mood and affect Vital Signs Temp Pulse Resp BP Pulse Ox 97.9 F 75 18 122/74 H 99 05/01/19 14:05 05/01/19 14:05 05/01/19 14:05 05/01/19 14:05 05/01/19 14:05 Oxygen Delivery Method Room Air Weight: 162.9 kg Body Mass Index (BMI) 57.9 Intake and Output for Last 24 Hours 04/29/19 04/30/19 05/01/19 23:59 23:59 23:59 Intake Total 680 / 980 540 / 840 300 / 300 Output Total 1800 / 2150 1150 / 1150 200 / 200 Balance -1120 / -1170 -610 / -310 100 / 100 Microbiology Past 72 Hours 04/28/19 02:05 Urine Culture - Final Urine, Clean Catch Mixed Gram Pos & Gram Neg Org Medical Necessity - Tobacco Use Smoking Status: Never smoker Tobacco Use: Non-smoker Assessment/Plan All Active Problems Declining functional status (Acute) Weakness of both lower extremities (Acute) UTI (urinary tract infection) (Acute) #1 generalized debility-probably secondary to deconditioning and morbid obesity on a backdrop of osteoarthritis-PT and OT will continue, MRI of the lumbar spine does not show any disc herniation, only disc bulging and osteoarthritis. #2 bipolar 1 disorder #3 chronic low back pain-probably secondary to osteoarthritis of the lumbar spine #4 fibromyalgia #5 hypothyroidism #6 osteoarthritis-severe in the right hip, patient has been encouraged to try weight loss and see orthopedic surgery for consultation as an outpatient No evidence of urinary tract infection at this time, patient's urine culture grew out mixed organisms indicative of contamination. Patient has no signs or symptoms of urinary tract infection. Code Visit Inpatient E&M: 22788 Subs Hosp L2
[2019-05-01 20:31] VITALS: BP 140/82; PULSE 80; RESP 18; TEMP 36.9; O2SAT 95
[2019-05-01] MEDS: Glycerin/Hypromellose/PEG400 15 ml Bottle 2 DRP EACH EYE ×2 (21:04→22:37)
[2019-05-01] MEDS: MELATONIN 3 MG TABLET PO (21:22)
[2019-05-01] MEDS: QUEtiapine 100 MG Tablet 300 MG PO (21:23)
[2019-05-01] MEDS: Acetaminophen 325 MG Tablet 650 MG PO (22:36)
[2019-05-02 03:14] VITALS: BP 126/73; PULSE 79; RESP 16; TEMP 36.8; O2SAT 99
[2019-05-02] MEDS: HYDROcodone Bitartrate/Apap 5/325 Tablet PO (05:15)
[2019-05-02] MEDS: Glycerin/Hypromellose/PEG400 15 ml Bottle 2 DRP EACH EYE (05:16)
[2019-05-02] MEDS: Polyethylene Glycol 3350 17 GM PACKET PO (08:51)
[2019-05-02] MEDS: Lactulose 20 GM/30 ML UDC PO (08:51)
[2019-05-02] MEDS: FLUoxetine 20 MG Capsule PO (08:53)
[2019-05-02] MEDS: Celecoxib 200 MG Capsule PO (08:53)
[2019-05-02] MEDS: Pantoprazole Sodium 40 MG Tablet PO (08:53)
[2019-05-02] MEDS: Thyroid 60 MG Tablet PO (08:53)
[2019-05-02] MEDS: PROGESTERONE, MICRONIZED 100 MG CAPSULE PO (08:54)
[2019-05-02] MEDS: Enoxaparin 40 MG/0.4 ML Syringe SC (08:54)
[2019-05-02] MEDS: Pregabalin 75 MG Capsule PO (08:54)
[2019-05-02] MEDS: Nystatin Powder 15gm Bottle 1 APPLIC TOPICAL (08:54)
[2019-05-02 09:14] VITALS: BP 110/62; PULSE 65; RESP 18; TEMP 36.8; O2SAT 95
--- NOTE | 2019-05-02 09:52 | CASEMGMT ---
Addendum entered by Ronel Tamayo 05/02/19 10:59: SUDARSHAN faxed completed discharge paperwork to [facility] including transfer to extended care facility, signed medication list and any scripts. Original in SNF folder and copy on pt's chart. SUDARSHAN wrote on fax cover sheet that pt's is currently at SNF and will be transporting pt WILLY. Original Note: Social Work Note SUDARSHAN received message from Landy at [facility]. Landy states pt's went to the [facility] last night and was able to get the money needed for SNF.Pt is able to discharge to SNF today. SUDARSHAN placed a call to pt's Shaquille to confirm discharge plans. Shaquille confirms that everything has been arranged for pt to go to [facility] today and he will be at [facility] around 10:30am to transport pt to SNF. Physician, RN and psychiatric secretary updated. SUDARSHAN completed convalescent 7000 in HENS yesterday. SUDARSHAN will fax discharge paperwork once completed. Plan: Pt to discharge to [facility] skilled today with pt's transporting via private vehicle around 10:30am Ronel Tamayo WOOL BROKER, GATEHOUSE ATTENDANT
--- NOTE | 2019-05-02 10:31 | PCM.TXEXTCAR ---
- Diet 04/28/19 04:02 Diet: Calorie Controlled Food consistency:: Regular Liquid Consistency:: Regular/Thin Diet Comments: no concentrated sweets/drinks How many daily calories?: 1400 calorie - Therapies Weight Bearing: Full weight bearing Physical Therapy: Eval and Treat Occupational Therapy: Eval and Treat - Problem/Diagnosis (1) Arthritis of hip Status: Chronic Comment: severe right hip osteoarthritis Current Visit: Yes (2) Degenerative joint disease (DJD) of lumbar spine Status: Chronic Current Visit: Yes (3) Fibromyalgia Status: Chronic Current Visit: No (4) Chronic low back pain without sciatica Status: Chronic Current Visit: No (5) Bipolar 1 disorder Status: Chronic Current Visit: No (6) Morbid obesity Status: Chronic Current Visit: Yes - Allergies/Procedures Done in Hospital Allergies/Adverse Reactions: Allergies Iodinated Contrast- Oral and IV Dye [DYEE] Allergy (Verified 04/27/19 23:49) Nausea/Vom/Diarrhea prochlorperazine [From Compazine] Allergy (Verified 04/27/19 23:49) Nausea/Vom/Diarrhea sulfamethoxazole [From Bactrim] Allergy (Verified 04/27/19 23:49) Rash trimethoprim [From Bactrim] Allergy (Verified 04/27/19 23:49) Rash Procedures: None - Type of Care/Length of Stay Estimated LOS: Convalescent Care Less Than 30 days Type of Care Needed: Skilled Rehab Potential: Good Prognosis: Good - Additional Orders/Day of Discharge H&P will serve as current which was dated: 04/28/19 Day of Discharge: 05/02/19 - Dietary and Speech Recommendations Dietitian Recommendations/Changes: . Would benefit from nutrition education for wt loss - Follow Up Care Primary Care Physician: Care Physician,No Primary [Primary Care Provider] -
--- NOTE | 2019-05-03 09:51 | PCM.DC.SUM ---
Discharge Date and Diagnosis Date of Admission: 04/28/19 Date of Discharge: 05/02/19 - Primary Discharge Diagnosis #1 generalized debility-probably secondary to deconditioning and morbid obesity on a backdrop of osteoarthritis and bipolar disorder #2 bipolar 1 disorder #3 chronic low back pain-probably secondary to osteoarthritis of the lumbar spine #4 fibromyalgia #5 hypothyroidism #6 osteoarthritis-severe in the right hip #7 morbid obesity No evidence of acute cystitis - Secondary Discharge Diagnosis Chronic Problems Fibromyalgia (Chronic) Hypothyroidism (Chronic) Chronic low back pain without sciatica (Chronic) Bipolar 1 disorder (Chronic) Arthritis of hip (Chronic) severe right hip osteoarthritis Degenerative joint disease (DJD) of lumbar spine (Chronic) Morbid obesity (Chronic) Hospital Course and Treatment Operations: None Procedures: None Summary of Care Provided: The patient is a 58 year old F who was seen in the emergency room at [facility] with a chief complaint of low back discomfort and weakness in the legs. Patient had recently been admitted to a [facility] and was given steroids for the same complaint. Patient is seen as an outpatient for chronic pain by a chronic pain specialist. Work-up in the emergency room included labs which showed no abnormalities, chest x-ray showed no pneumonia, urinalysis was felt by the emergency room physician to indicate a urinary tract infection although the patient had no complaints of dysuria, frequency, or blood in the urine. Patient was given IV Rocephin, she was admitted to [place] [id number] and seen by PT and OT, patient's urine culture ultimately showed contamination with mixed gram-positive negative organisms. Patient's antibiotics were stopped, MRI was carried out on the right hip which showed severe osteoarthritis. Patient was felt to be a candidate for short-term admission to a care home facility, due to her insurance, had to get permission from his charge for admission to a care home facility to pay the charges. On 05/02/2019, patient was seen and examined: On examination she appeared in good health and spirits, patient is morbidly obese. Vital signs as documented. Skin warm and dry and without overt rashes. Neck without JVD. Lungs clear. Heart exam notable for regular rhythm, normal sounds and absence of murmurs, rubs or gallops. Abdomen unremarkable and without evidence of organomegaly, masses, or abdominal aortic enlargement. Extremities nonedematous. Neuro: Cranial nerves II through XII are grossly intact, no focal motor deficits were noted, sensation to light touch and pinprick is intact. Psych: Patient is alert and oriented x3, she does not appear anxious or depressed On 05/02/2019, patient was seen and examined felt in stable condition for transfer to an extended care facility - Physical Exam Vital Signs Temp Pulse Resp BP Pulse Ox 98.3 F 65 18 110/62 95 05/02/19 09:14 05/02/19 09:14 05/02/19 09:14 05/02/19 09:14 05/02/19 09:14 Oxygen Delivery Method Room Air Weight: 160 kg Body Mass Index (BMI) 57.9 Intake and Output for Last 24 Hours 05/01/19 05/02/19 05/03/19 23:59 23:59 23:59 Intake Total 300 / 300 300 / 300 Output Total 200 / 200 350 / 350 Balance 100 / 100 -50 / -50 Home Medications: Medications to take at Discharge Celecoxib 200 mg PO DAILY 04/27/19 Fluoxetine HCl [Prozac] 20 mg PO BID 04/27/19 Pregabalin [Lyrica] 75 mg PO BID 04/27/19 Progesterone, Micronized [Progesterone] 100 mg PO DAILY 04/27/19 Quetiapine Fumarate [Seroquel] 300 mg PO DAILY 04/27/19 Thyroid,Pork [Online Merchandising Specialist Thyroid] 60 mg PO DAILY 04/27/19 Acetaminophen [Tylenol Tablet] 650 mg PO Q6H PRN PRN tab 05/02/19 Hydrocodone/Acetaminophen [[place] 5-325 Tablet] 5 - 325 mg PO TID #30 tab 05/02/19 Loratadine [Claritin] 10 mg PO DAILY #10 tab 05/02/19 Nystatin Powder [Mycostatin Powder] 1 applic TOPICAL BID bottle 05/02/19 Pantoprazole Sodium [Protonix] 40 mg PO DAILY tab 05/02/19 Peg 400/Hypromellose/Glycerin [Artificial Tears] 2 drp EACH EYE Q1H PRN bottle 05/02/19 Polyethylene Glycol 3350 [Miralax] 17 gm PO DAILY packet 05/02/19 Following Prescrptions Were Given to Patient: Loratadine [Claritin] 10 mg PO DAILY #10 tab Hydrocodone/Acetaminophen [[place] 5-325 Tablet] 5 - 325 mg PO TID #30 tab Prescription Printed Primary Care Physician: Care Physician,No Primary [Primary Care Provider] - Disposition: Custodial facility Minutes spent on discharge:: 32 Patient Condition:: Stable Medical Necessity - Tobacco Use Smoking Status: Never smoker Tobacco Use: Non-smoker Meaningful Use Info Meaningful Use Diagnoses (Choose all that apply): None applicable Code Visit Inpatient E&M: 33659 Disch Hosp
== END 2019-05-02 11:15 | disposition skilled nursing facility (03) | DRG 948 ==
LOC: ED 04-28 01:56 → MS3 04-28 03:47
PROVIDERS: Admitting Provider Hospitalist; Emergency Provider Emergency Medicine; Referring Provider Hospitalist; Visit Provider Internal Medicine
DX: R53.81 Other malaise (principal); Z68.43 Body mass index [BMI] 50.0-59.9, adult; E66.01 Morbid (severe) obesity due to excess calories; M79.7 Fibromyalgia; L30.4 Erythema intertrigo; E03.9 Hypothyroidism, unspecified; F31.9 Bipolar disorder, unspecified; M47.816 Spondylosis without myelopathy or radiculopathy, lumbar region; G89.29 Other chronic pain; M16.11 Unilateral primary osteoarthritis, right hip; M51.36 Other intervertebral disc degeneration, lumbar region
CPT/HCPCS: 36415; 71045; 72148; 73502; 80048; 81001; 82962; 83036; 84443; 85025; 87086; 87088; 97163; 97165; 97530; 97535; 97803; 99285; J7030; A4216; J2405

== ENCOUNTER 2019-08-09 20:08 | Emergency (ER) | payer SELFPAY ==
[2019-04-28 04:02] VITALS: BMI 57.9
[2019-08-09 20:10] VITALS: BP 161/116; PULSE 95; RESP 16; TEMP 36.7; O2SAT 99; BMI 59.1
[2019-08-09 20:20] LABS: Bacteria 0 SEEN /hpf (None Seen); Mucous, Urine 0 SEEN /hpf (<or=2+); Red Blood Cells-Urine 0 SEEN /hpf (0-5); Squamous Epithelial Cells - UA 0 SEEN /hpf (5-10); White Blood Cells 0 SEEN /hpf (0-5)
[2019-08-09 20:25] LABS: Color, Urine Yellow (Yellow); Glucose, Dipstick Normal (Normal); Ketone-Dipstick Negative (Negative); Leukocyte Esterase-Dipstick 25 /ul (Negative); Nitrite-Dipstick Negative (Negative); Occult Blood-Urine Negative /ul (Negative); Protein-Dipstick Negative (Negative); Specific Gravity, Urine 1.005 (1.002-1.030); Urine Bilirubin Dipstick Negative (Negative); Urine Clarity Clear (Clear); Urine Urobilinogen Normal (Normal)
--- NOTE | 2019-08-09 22:37 | CT_ITS ---
STUDY: CT ABDOMEN AND PELVIS WITHOUT CONTRAST REASON FOR EXAM: Female, 59 years old. Abdominal pain, burning urination RADIATION DOSAGE (If Supplied By Facility): CTDIvol = ( 32.64 ) mGy, DLP = ( 1729.03 ) mGycm TECHNIQUE: Transaxial images were obtained from the dome of the diaphragm to the symphysis pubis without oral contrast, and without intravenous contrast. Sagittal and coronal images were reconstructed. Individualized dose optimization techniques were used for this CT. COMPARISON: None. FINDINGS: Left lower lobe calcified granuloma. The visualized portions of the heart are within normal limits. Normal liver. Status post cholecystectomy. No significant dilatation of the extrahepatic biliary system. Normal spleen. Normal pancreas. Normal bilateral adrenal glands. Normal right kidney. Normal left kidney. Normal visualized stomach. Normal small intestine. Normal colon. The appendix is visualized and appears normal. Normal abdominal aorta. Normal inferior vena cava. Normal retroperitoneum. Normal urinary bladder. Nonvisualization of the uterus. Normal abdominal wall. Mild degenerative vertebral changes and slight scoliosis. Degenerative cystic changes at the right hip. CT/Abdomen/Pelvis without Cont IMPRESSION: No acute pathology of the abdomen and pelvis. Electronically Signed: Emile Howard DO at 23:39 EDT Tel [phone], Service support ,
[2019-08-09] MEDS: Metoclopramide 10 MG/2 ML Vial IV (22:51)
[2019-08-09] MEDS: 0.9% Normal Saline 1,000 ML 1000 ML IV (22:51)
[2019-08-09] MEDS: DiphenhydrAMINE 50 MG/ML Syringe 25 MG IV (22:53)
[2019-08-09] MEDS: Morphine 4 MG/ML Syringe IV (22:54)
[2019-08-09 22:56] VITALS: RESP 18
[2019-08-09 23:09] LABS: Absolute Lymphocyte Count 1.85 X10^3/uL (0.83-4.51); Basophil# 0.07 X10^3/uL; Basophil% 0.7 % (0-1); Eosinophil# 0.07 X10^3/uL; Eosinophils% 0.7 % (0-5); Hematocrit 46.8 % (37-47); Hemoglobin 15.7 g/dL (12.0-15.0); Lymphocyte # 1.85 X10^3/ul (4.0); Lymphocyte % 19.2 % (19-41); Mean Corp Hgb Conc 33.5 g/dL (32-36); Mean Corpuscular Hgb 31.3 pg (27.0-32.0); Mean Corpuscular Volume 93.4 fL (81-99); Mean Platelet Vol. 9.9 fl (6.2-12.0); Monocyte# 0.65 X10^3/uL; Monocyte% 6.7 % (0-10); NRBC Flagged by Analyzer 0 % (0-5); Neutrophil # 6.98 X10^3/uL (2.7-7.7); Neutrophil % 72.4 % (47-70); Platelet Count 329 K/mm3 (150-450); RBC Distribution Width CV 12.6 % (11.6-14.6); RBC Distribution Width SD 43.6 fl (35.1-43.9); Red Blood Count 5.01 M/mm3 (4.2-5.4); White Blood Count 9.7 K/mm3 (4.4-11.0)
[2019-08-09 23:23] LABS: ALB/GLOB Ratio 1.1 RATIO (0.9-2.4); AST(SGOT) 15 U/L (15-37); Alanine Aminotransfer ALT/SGPT 24 U/L (13-56); Albumin, Serum 4.4 g/dL (3.2-5.0); Alkaline Phosphatase 110 U/L (45-117); Anion Gap 10 (5-15); BUN 15 mg/dL (7-18); BUN/Creat Ratio 19.4 RATIO (10-20); Calcium,Total 10.3 mg/dL (8.5-10.1); Chloride 105 mmol/L (98-107); Creatinine, Serum 0.77 mg/dL (0.55-1.02); EST Glomerular Filtration Rate 81 mL/min (>60); Est Glom Filt Rate - Afr Amer 98 mL/min (>60); Estimated Creatinine Clearance 73.64 ml/min; Glucose 109 mg/dL (74-106); Lipase 48 U/L (73-393); Potassium 3.6 mmol/L (3.5-5.1); Protein, Total 8.4 g/dL (6.4-8.2); Sodium Level 140 mmol/L (136-145)
[2019-08-09 23:59] LABS: Lactic Acid 1.4 mmol/L (0.4-2.0)
--- NOTE | 2019-08-10 00:09 | ED.VISSUMM ---
- ER Visit Summary Date of Service: 08/10/19 Chief Complaint: Epigastric abdominal pain History of Present Illness: The patient is a 59 F who presents with epigastric pain that has been getting progressively worse over the past 2 weeks. Patient describes the pain as burning. Patient states the pain is worse with eating or drinking. Patient also admits to some mild dizziness. Patient states that when she closes her eyes she feels like things are spinning. Patient denies any fevers but admits to subjective chills. Patient admits to nausea but denies any vomiting. Patient does admit to a headache and photophobia. Physical Examination: Vital signs are stable except for slightly elevated blood pressure 161/116. Patient is afebrile. Patient is in no acute distress. Oral mucosa is pink and moist. Neck is supple. Trachea is midline. There is no JVD noted. Heart was regular rate and rhythm. Lungs are clear and equal bilaterally. Abdomen is soft. Bowel sounds are normal. There is tenderness over the epigastric area. There is no rebound or guarding noted. Cranial nerves II through XII are intact. There are no focal motor or sensory deficits noted. Test Results: CBC, comprehensive metabolic profile, lipase, lactate, and urinalysis were obtained and were all within normal limits. CT scan of the abdomen pelvis was obtained and was normal. Emergency Department Course and Treatment: Patient was given IV fluids. Patient was given Reglan and Benadryl. Patient was feeling better on reevaluation. Patient was given a prescription for Prilosec. Patient was instructed to follow-up with her primary care physician in 3 to 5 days for further evaluation. Patient understood and was agreeable with the plan. All questions were answered. Disposition: Discharge home Impression: Gastritis This note was generated with [employer] dictation software. It may contain incorrect words, spelling, and punctuation that were not noted in review of the chart prior to signing ED Disposition - Plan for ED Patient: Disposition: Home or Assisted Living Diagnosis: Gastritis Instructions: GASTRITIS vs. ULCER Prescriptions: Omeprazole [Prilosec] 20 mg PO DAILY #30 cap Prescription Printed Referrals: Care Physician,No Primary [Primary Care Provider] - 3-5 Days
[2019-08-10 00:30] VITALS: BP 149/106; PULSE 98; RESP 18; O2SAT 95
== END 2019-08-10 00:42 | disposition home or self-care (01) ==
PROVIDERS: Emergency Provider Emergency Medicine
DX: K29.70 Gastritis, unspecified, without bleeding (principal); J44.9 Chronic obstructive pulmonary disease, unspecified; E03.9 Hypothyroidism, unspecified; M79.7 Fibromyalgia; M19.90 Unspecified osteoarthritis, unspecified site; F32.9 Major depressive disorder, single episode, unspecified; E66.9 Obesity, unspecified; Z79.899 Other long term (current) drug therapy
CPT/HCPCS: 74176; 80053; 81001; 83605; 83690; 85025; 96361; 96374; 96375; 99285; J7030

== ENCOUNTER → 2022-01-22 | Outpatient (REF) | payer SELFPAY ==
[2022-01-22 07:32] LABS: Absolute Lymphocyte Count 2.19 X10^3/uL (0.83-4.51); Absolute Neutrophil Count 2.6 X10^3/uL (2.0-7.7); Basophil# 0.05 X10^3/uL; Basophil% 0.9 % (0-1); Eosinophil# 0.32 X10^3/uL; Eosinophils% 5.6 % (0-5); Hematocrit 38.6 % (37-47); Hemoglobin 12.7 g/dL (12.0-15.0); Lymphocyte # 2.19 X10^3/ul (0.83-4.51); Lymphocyte % 38.1 % (19-41); Mean Corp Hgb Conc 32.9 g/dL (32-36); Mean Corpuscular Hgb 30.9 pg (27.0-32.0); Mean Corpuscular Volume 93.9 fL (81-99); Mean Platelet Vol. 10.1 fl (6.2-12.0); Monocyte# 0.56 X10^3/uL; Monocyte% 9.7 % (0-10); NRBC Flagged by Analyzer 0 % (0-5); Neutrophil # 2.61 X10^3/uL (2.7-7.7); Neutrophil % 45.4 % (47-70); Platelet Count 288 K/mm3 (150-450); RBC Distribution Width SD 44.2 fl (35.1-43.9); Red Blood Count 4.11 M/mm3 (4.2-5.4); White Blood Count 5.8 K/mm3 (4.4-11.0)
[2022-01-22 07:33] LABS: Anion Gap 6 (5-15); BUN 16 mg/dL (7-18); BUN/Creat Ratio 23.7 RATIO (10-20); Calcium,Total 8.6 mg/dL (8.5-10.1); Chloride 106 mmol/L (98-107); Creatinine, Serum 0.68 mg/dL (0.55-1.02); EST Glomerular Filtration Rate 94 mL/min (>60); Est Glom Filt Rate - Afr Amer 114 mL/min (>60); Glucose 97 mg/dL (74-106); Potassium 3.6 mmol/L (3.5-5.1); Sodium Level 139 mmol/L (136-145)
== END | disposition home or self-care (01) ==
LOC: OLS.SW1020 05:00
PROVIDERS: Visit Provider Internal Medicine
DX: R68.89 Other general symptoms and signs (principal); Z13.228 Encounter for screening for other metabolic disorders
CPT/HCPCS: 36415; 80048; 85025

== ENCOUNTER → 2022-01-25 | Outpatient (REF) | payer SELFPAY ==
[2022-01-25 08:09] LABS: Hematocrit 37.3 % (37-47); Hemoglobin 12.4 g/dL (12.0-15.0); Mean Corp Hgb Conc 33.2 g/dL (32-36); Mean Corpuscular Hgb 31.3 pg (27.0-32.0); Mean Corpuscular Volume 94.2 fL (81-99); Mean Platelet Vol. 10.3 fl (6.2-12.0); Platelet Count 290 K/mm3 (150-450); RBC Distribution Width CV 13.2 % (11.6-14.6); RBC Distribution Width SD 45.4 fl (35.1-43.9); Red Blood Count 3.96 M/mm3 (4.2-5.4)
[2022-01-25 08:28] LABS: Anion Gap 7 (5-15); BUN 19 mg/dL (7-18); BUN/Creat Ratio 30.7 RATIO (10-20); Calcium,Total 8.7 mg/dL (8.5-10.1); Chloride 108 mmol/L (98-107); Creatinine, Serum 0.62 mg/dL (0.55-1.02); EST Glomerular Filtration Rate 104 mL/min (>60); Est Glom Filt Rate - Afr Amer 126 mL/min (>60); Glucose 94 mg/dL (74-106); Potassium 3.6 mmol/L (3.5-5.1); Sodium Level 141 mmol/L (136-145); Thyroid Stim Hormone (TSH) 2.88 uIU/mL (0.358-3.74)
[2022-01-25 08:31] LABS: Vitamin B12 1389 pg/mL (211-911)
== END | disposition home or self-care (01) ==
LOC: OLS.SW1020 05:00
PROVIDERS: Visit Provider Family Medicine
DX: J44.9 Chronic obstructive pulmonary disease, unspecified (principal)
CPT/HCPCS: 36415; 80048; 82306; 82607; 84443; 85027